=== PATIENT | female | born 1990 | race Caucasian/White ===

== ENCOUNTER → 2020-06-12 | Outpatient (CLI) | payer OTHER | LOC: YCFC.O 15:36 | PROVIDERS: ATTEND Family Medicine | DX: Z20.828 Contact with and (suspected) exposure to other viral communicable diseases (principal) ==

== ENCOUNTER 2020-09-05 12:51 | Emergency (ER) | payer SELFPAY ==
[2020-09-05 13:08] VITALS: O2SAT 97
--- NOTE | 2020-09-05 14:06 | ED.PDOC ---
History of Present Illness - General Chief Complaint: FORENSIC SPECIALIST Problem Stated Complaint: tried to take Mirena implant out Time Seen by Provider: 09/05/20 13:38 Source: patient Exam Limitations: no limitations - History of Present Illness Initial Comments: PT ATTEMPTED TO REMOVE HER IUD LAST NIGHT. SHE THINKS SHE PUSHED THE STRING UP INTO THE UTERUS, SHE CAN NO LONGER LOCATE IT. IT HAS BECOME MORE UNCOMFORTABLE SINCE DOING SO, THUS SHE IS CONCERNED SHE MIGHT HAVE ALTERED THE LOCATION OF THE IUD. SHE HAS HAD IT IN FOR 6 YRS (MIRENA) THUS WAS SUPPPOSED TO BE REMOVED 1 YR AGO. IT WAS INSERTED IN [place]. SHE DOESN'T RECALL THE DR'S NAME AND DOESN'T HAVE A PCP/RELAY DISPATCHER, THUS SHE DIDN'T MAKE AN APPOINTMENT. SHE WENT TO THE URGENT CARE, WHO SAID THEY DO NOT REMOVE THEM, THUS CAME TO ER. Timing/Duration: yesterday Quality: moderate, sharpness Onset Location: other - PUBIC Radiation: none Activites at Onset: other - ATTEMPTING TO REMOVE IUD HERSELF. Improving Factors: nothing Worsening Factors: nothing Associated Symptoms: denies symptoms Allergies/Adverse Reactions: Allergies NO KNOWN ALLERGY Allergy (Verified 09/05/20 13:08) Home Medications: Ambulatory Orders NK 09/05/20 Review of Systems - Review of Systems Constitutional: Denies: chills, fever EENTM: States: no symptoms reported Respiratory: States: no symptoms reported Cardiology: States: no symptoms reported Gastrointestinal/Abdominal: States: other - PELVIC DISCOMFORT BUT NOT ABDOMINAL PAIN. . Denies: nausea, vomiting Genitourinary: Denies: discharge, dysuria, frequency, hematuria Musculoskeletal: Denies: back pain, neck pain Skin: States: no symptoms reported Neurological: States: no symptoms reported Endocrine: States: no symptoms reported Hematologic/Lymphatic: States: no symptoms reported All other Systems: Reviewed and Negative Past Medical History (General) - Patient Medical History Hx Stroke: No Hx Congestive Heart Failure: No Hx Diabetes: No Surgical History: no surgical history - Vaccination History Hx Influenza Vaccination: No - Social History Hx Tobacco Use: Yes - Female History Patient is a Female of Child Bearing Age (10 -59 yrs old): Yes - Mirena implant Patient : No Family Medical History - Family History Mother Family History: Unknown Living Status: Unknown Physical Exam - Physical Exam General Appearance: Alert, No apparent distress Eyes, Ears, Nose, Throat Exam: PERRL/EOMI, normal ENT inspection Neck: full range of motion, normal inspection Cardiovascular/Respiratory: regular rate, rhythm Gastrointestinal/Abdominal: normal bowel sounds, non tender, soft, no orga nomegaly, no pulsatile mass Rectal Exam: deferred Pelvic Exam: external exam normal, speculum exam normal - NO IUD STRING IS VISUALIZED WITH SPECULUM. I GENTLY MANIPULATED THE CERVIX AND OS WITH A SOFT WILLIAM SWAB TO SEE IF IT WOULD "TEASE OUT" THE IUD STRING BUT IT DID NOT, THUS I WAS UNABLE TO ATTEMPT IUD REMOVAL (THERE WAS NO STRING TO GRASP). , bimanual exam normal, no cerv. motion tender, no masses, other - NURSE NAIDA PRESENT DURING ENTIRE PHYSICAL EXAM. Back Exam: no CVA tenderness Extremity: normal range of motion, normal inspection Neurologic: alert, normal mood/affect Skin Exam: normal color, warm/dry Lymphatic: no adenopathy Progress - Results/Orders Results/Orders: KUB SHOWS IUD IS APPROPRIATELY IN THE MIDLINE OF THE PELVIS (HAS NOT MIGRATED). PER SPECULUM EXAM, THE IUD STRING HAS INSERTED INTO THE UTERUS. I WAS NOT ABLE TO LOCATE A STRING, THUS I WAS NOT ABLE TO ATTEMPT IUD REMOVAL. I AM REFERRING TO FORENSIC SPECIALIST WHO MAY BE ABLE TO LOCATE STRING FOR IUD REMOVAL USING CYTOBRUSH, GRECIA OR ALLIGATOR CLAMP, OR HYSTEROSCOPY. NO EMERGENT CONCERNS TODAY - BENIGN ABDOMINAL AND CERVICAL EXAM. SAFE FOR DC TO HOME. Departure - Departure Clinical Impression: IUD (intrauterine device) in place IUD strings lost Qualifiers: Encounter type: initial encounter Qualified Code(s): T83.32XA - Displacement of intrauterine contraceptive device, initial encounter Disposition: Discharge to Home or Self Care Condition: Good Departure Forms: ED Discharge - Pt. Copy, Patient Portal Self Enrollment Instructions: Intrauterine Device Removal Diet: resume usual diet Activity: increase activity as tolerated Referrals: RADHA NAJERA [Primary Care Provider] - 1-2 Weeks Home Medications: Ambulatory Orders NK 09/05/20 Additional Instructions: Please call the [facility] doctors in [place] and make an appointment at the nearest opportunity for IUD removal.
--- NOTE | 2020-09-05 14:40 | RAD ---
EXAM DESCRIPTION: KUB CLINICAL HISTORY: 30 years Female, PT ATTEMPTED TO REMOVE IUD. NOW HAVING PAIN. COMPARISON: None. TECHNIQUE: Single view radiograph of the abdomen. IMPRESSION: Mild colonic stool. Nondilated bowel gas pattern. No pathologic calcification overlying the renal shadows or expected course of the ureters. IUD in place near the midline pelvis. Unremarkable included osseous structures. Electronically signed by: Darron Romero MD 09/05/2020 2:38 PM CDT
[2020-09-05 15:14] VITALS: BP 120/90; TEMP 98.7
== END 2020-09-05 15:14 | disposition home or self-care (01) ==
LOC: ER 12:51
DX: T83.32XA Displacement of intrauterine contraceptive device, initial encounter (principal); Z87.891 Personal history of nicotine dependence